=== PATIENT | male | born 1975 | race Caucasian/White ===

== ENCOUNTER 2020-05-14 04:03 | Emergency (ER) | payer OTHER ==
[~2020-05-14] VITALS: Ht 170.2 cm; Wt 75.7 kg
--- NOTE | 2020-05-14 04:15 | NUR ---
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 FSBS:360. NO S/S OF HYPO OR HYPERGLYCEMIA. PT DENIED ANY DISCOMFORT. -N/V
--- NOTE | 2020-05-14 04:30 | NUR ---
RAC 18G IV LINE STARTED. BLOOD DRAWN AND SENT TO LAB.
[2020-05-14 05:00] LABS: BILIRUBIN,URINE NEGATIVE (NEGATIVE); COLOR,URINE YELLOW (YELLOW); LEUKOCYTE ESTERASE ,URINE NEGATIVE (NEGATIVE); NITRITE, URINE NEGATIVE (NEGATIVE); PROTEIN,URINE NEGATIVE (NEGATIVE); UGLUCOSE >=1000 mg/dL (NEGATIVE); UROBILINOGEN,URINE 0.2 EU/dL (0.2)
[2020-05-14 05:15] LABS: CALCIUM, SERUM 9.3 mg/dL (8.5-10.1); POTASSIUM 4.2 mmol/L (3.5-5.1)
[2020-05-14 05:17] LABS: BACTERIA,URINE None seen /HPF (None Seen); MUCUS,URINE Few /LPF (None Seen); RBC,URINE 0-2 /HPF (0-2); SQUAMOUS EPITHELIAL CELL,UR Few /HPF (None Seen); WBC,URINE 0-2 /HPF (0-3); YEAST,URINE None Seen /HPF (None Seen)
[2020-05-14] MEDS ORDERED: INSULIN LISPRO/ASPART 100 UNIT/ML CARTRIDGE SQ SCH (05:30)
[2020-05-14] MEDS ORDERED: INSULIN LISPRO/ASPART 100 UNIT/ML CARTRIDGE SQ ONE (05:33)
--- NOTE | 2020-05-14 05:45 | NUR ---
PT IS MEDICALLY STABLE FOR D/C,. IV removed. Catheter intact and site benign. Pressure and 4x4 applied to site. No bleeding noted.Patient discharged to [facility] in custody in stable condition. Written and verbal after care instructions given. Patient verbalizes understanding of instruction.
[2020-05-14 05:46] VITALS: BP 142/86
== END 2020-05-14 05:48 | disposition home or self-care (01) ==
LOC: ER 04:03
DX: E10.65 Type 1 diabetes mellitus with hyperglycemia (principal); Z02.89 Encounter for other administrative examinations
CPT/HCPCS: 36415; 80048; 81001; 82962; 96372; 99283; J1815